=== PATIENT | male | born 1965 ===

== ENCOUNTER 2022-01-25 14:56 | Emergency (ER) | payer OTHER ==
[~2022-01-25] VITALS: Ht 182.9 cm; Wt 102.1 kg
[2022-01-25] MEDS ORDERED: COZAAR50 MG PO (15:12)
[2022-01-25] MEDS ORDERED: METFORMIN HCL1000 M1 PO (15:12)
[2022-01-25] MEDS ORDERED: NEURONTIN800 MG PO (15:13)
[2022-01-25] MEDS ORDERED: LIPITOR20 MG PO (15:13)
[2022-01-25] MEDS ORDERED: TOPROL XL25 M1 PO (15:13)
[2022-01-25] MEDS ORDERED: OMEGA 3 1,0001 EACH PO (15:14)
[2022-01-25] MEDS ORDERED: INVOKANA300 MG PO (15:14)
[2022-01-25] MEDS ORDERED: VENALIV CAPLET1 EACH PO (15:14)
[2022-01-25] MEDS ORDERED: GLIMEPIRIDE2 MG (15:14)
[2022-01-25] MEDS ORDERED: FOLIC ACID1 MG PO (15:15)
[2022-01-25] MEDS ORDERED: FUROSEMIDE20 MG PO (15:15)
[2022-01-25] MEDS ORDERED: PEPCID AC20 MG PO (15:15)
== END 2022-01-25 21:52 | disposition home or self-care (01) ==
LOC: ER 14:56
DX: S82.61XA Displaced fracture of lateral malleolus of right fibula, initial encounter for closed fracture (principal); W18.30XA Fall on same level, unspecified, initial encounter; Y93.89 Activity, other specified; Y92.9 Unspecified place or not applicable; Y99.9 Unspecified external cause status; Z88.6 Allergy status to analgesic agent; I10 Essential (primary) hypertension; E11.9 Type 2 diabetes mellitus without complications; Z79.84 Long term (current) use of oral hypoglycemic drugs